=== PATIENT | male | born 1980 | race Hispanic/Latino ===

== ENCOUNTER 2018-01-20 09:58 | Emergency (ER) | payer SELFPAY ==
[2018-01-20] MEDS ORDERED: Ketorolac Tromethamine 60 MG/2 ML VIAL ONE (10:48)
--- NOTE | 2018-01-20 11:38 | RAD ---
TWO VIEWS OF THE RIGHT SHOULDER: COMPARISON: None. HISTORY: Right shoulder pain. FINDINGS: Three views of the right shoulder show no evidence of acute fracture or dislocation. No degenerative changes are seen. IMPRESSION: Unremarkable exam. POS: [facility]
== END 2018-01-20 11:36 | disposition home or self-care (01) ==
LOC: ERS 09:58
DX: M25.511 Pain in right shoulder (principal); E78.5 Hyperlipidemia, unspecified
CPT/HCPCS: 96372; J1885